=== PATIENT | female | born 1940 | race Hispanic/Latino ===

== ENCOUNTER 2017-08-18 12:47 | Inpatient (IN) | payer MEDICARE ==
[2017-08-18 12:50] VITALS: BMI 33.9
[2017-08-18] MEDS ORDERED: Sodium Chloride 0.9% 1,000 ML IV STA ×2 (13:35→14:33)
--- NOTE | 2017-08-18 13:59 | RAD ---
HISTORY: SOB COMPARISON: 10/26/2014. FINDINGS: LUNGS: The lungs are well inflated and clear. PLEURA: No significant pleural effusion identified, no pneumothorax apparent. CARDIOVASCULAR: The heart remains enlarged. There is unfolding of the aorta. OSSEOUS STRUCTURES: No significant abnormalities. VISUALIZED UPPER ABDOMEN: Normal. OTHER FINDINGS: None. IMPRESSION: No active pulmonary disease.
[2017-08-18 14:11] LABS: BASO # 0.1 K/uL (0.0-0.2); BASO % 0.4 % (0.0-2.0); EOS % 0.3 % (0.0-4.0); HEMOGLOBIN 14.8 g/dL (12.0-16.0); LYMPH # 1.2 K/uL (1.0-4.3); LYMPH % 8.3 % (20.0-40.0); MEAN CELL VOLUME 91.9 fl (81.0-99.0); MEAN CORPUSCULAR HEMOGLOBIN 30.8 pg (27.0-31.0); MEAN CORPUSCULAR HGB CONC 33.6 g/dL (33.0-37.0); MONO # 0.4 K/uL (0.0-0.8); MONO % 3.1 % (0.0-10.0); NEUT # 12.4 K/uL (1.8-7.0); NEUT % 87.9 % (50.0-75.0); NRBC % 0.1 % (0.0-0.0); PLATELET COUNT 239 K/uL (130-400); RBC 4.78 Mil/uL (3.80-5.20); RED CELL DISTRIBUTION WIDTH 13.6 % (11.5-14.5); WHITE BLOOD COUNT 14.1 K/uL (4.8-10.8)
[2017-08-18 14:26] LABS: ALB/GLOB RATIO 1.1 (1.0-2.1); ALBUMIN 4.3 g/dL (3.5-5.0); ALT/SGPT 21 U/L (9-52); AST/SGOT 20 U/L (14-36); BLOOD UREA NITROGEN 28 mg/dl (7-17); CALCIUM 9.6 mg/dL (8.4-10.2); GFR AFRICAN-AMERICAN 41; GFR NON-AFRICAN AMERICAN 34
[2017-08-18 14:37] LABS: B-TYPE NATRIURETIC PEPTIDE 369 pg/ml (0-900)
[2017-08-18 15:23] LABS: EOSINOPHIL 1 % (0-7); LYMPHOCYTE 9 % (20-50); MONOCYTE 2 % (0-10); NEUTROPHIL 87 % (42-75); PLATELET ESTIMATE NORMAL (NORMAL); REACTIVE LYMPHOCYTES 1 % (0-0); TOTAL CELLS COUNTED 100
--- NOTE | 2017-08-18 15:40 | ED PDOC ---
HPI: General Adult Time Seen by Provider: 08/18/17 13:23 Chief Complaint (Nursing): Dizziness/Lightheaded Chief Complaint (Provider): dizziness, abdominal pain, nausea History Per: Patient History/Exam Limitations: no limitations Onset/Duration Of Symptoms: Days (3), Gradual Current Symptoms Are (Timing): Still Present Severity: Moderate Additional Complaint(s): 76yo female presents c/o abdominal and chest "burning" associated with dizziness , nausea, insomnia and diarrhea. States also ran out of alprazolam 2 days ago, feels anxious with palpitations. Denies fever, urinary symptoms or syncope. States symptoms are similar to last year when she was diagnosed with colitis. Past Medical History Reviewed: Historical Data, Nursing Documentation, Vital Signs Vital Signs: Last Vital Signs Temp 98.8 F 08/18/17 12:49 Pulse 84 08/18/17 12:49 Resp 17 08/18/17 12:49 BP 166/73 H 08/18/17 12:49 Pulse Ox 94 L 08/18/17 12:49 - Medical History PMH: Anxiety, Diabetes, HTN, Hypercholesterolemia Denies: Arthritis, CHF, COPD, Hypothyroidism, Chronic Kidney Disease, Rheumatoid Arthritis - Family History Family History: States: Unknown Family Hx - Social History Current smoker - smoking cessation education provided: No Alcohol: None Drugs: Denies - Home Medications Home Medications: Ambulatory Orders Medication Instructions Recorded Aspirin [Aspirin EC] 81 mg PO DAILY 10/26/14 Glipizide [Glipizide ER] 2.5 mg PO DAILY 10/26/14 Lansoprazole 30 mg PO ONCE 10/26/14 Lorazepam 1 mg PO BID 10/26/14 Meclizine [Meclizine*] 25 mg PO TID 10/26/14 Metformin HCl 500 mg PO BID 10/26/14 Metoprolol Succinate [Toprol Xl] 50 mg PO BID 10/26/14 Ramipril 5 mg PO DAILY 10/26/14 Simvastatin 20 mg PO HS 10/26/14 Sitagliptin Phosphate [Januvia] 100 mg PO DAILY 10/26/14 Triamterene/Hydrochlorothiazid 1 tab PO DAILY 10/26/14 [Triamterene-Hctz 37.5-25 mg Tb] Ciprofloxacin HCl [Ciprofloxacin] 500 mg PO BID #14 tab 10/30/14 metroNIDAZOLE [Flagyl] 500 mg PO TID #21 tab 10/30/14 - Allergies Allergies/Adverse Reactions: Allergies Allergy/AdvReac Type Severity Reaction Status Date / Time No Known Allergies Allergy Verified 10/27/14 09:22 Review of Systems Constitutional: Positive for: Chills. Negative for: Fever ENT: Negative for: Throat Pain Cardiovascular: Positive for: Palpitations, Light Headedness. Negative for: Chest Pain Respiratory: Negative for: Shortness of Breath Gastrointestinal: Positive for: Vomiting, Abdominal Pain, Diarrhea. Negative for: Nausea, Constipation Genitourinary Female: Negative for: Dysuria Musculoskeletal: Negative for: Neck Pain, Back Pain Skin: Negative for: Rash Neurological: Positive for: Headache, Dizziness. Negative for: Weakness, Numbness Psych: Positive for: Anxiety, Withdrawal (benzo). Negative for: Depression Physical Exam - Reviewed Nursing Documentation Reviewed: Yes Vital Signs Reviewed: Yes - Physical Exam Appears: Positive for: Non-toxic (slow), No Acute Distress Head Exam: Positive for: ATRAUMATIC, NORMAL INSPECTION, NORMOCEPHALIC Skin: Positive for: Normal Color, Warm, DRY Eye Exam: Positive for: EOMI, Normal appearance, PERRL ENT: Positive for: Normal ENT Inspection Neck: Positive for: Normal, Painless ROM Cardiovascular/Chest: Positive for: Regular Rate, Rhythm Respiratory: Positive for: CNT, Normal Breath Sounds Gastrointestinal/Abdominal: Positive for: Soft, Tenderness (mild L>R). Negative for: Guarding Back: Positive for: Normal Inspection Extremity: Positive for: Normal ROM. Negative for: Deformity Neurologic/Psych: Positive for: Alert, Oriented. Negative for: Motor/Sensory Deficits - Laboratory Results Result Diagrams: 08/18/17 14:05 08/18/17 14:05 - ECG O2 Sat by Pulse Oximetry: 94 Medical Decision Making Medical Decision Making: workup for abd pain in setting of dizziness and anxiety initiated Disposition - Disposition
--- NOTE | 2017-08-18 16:19 | CT ---
PROCEDURE: CT Abdomen and Pelvis without intravenous contrast HISTORY: Abdominal pain and dizziness COMPARISON: 10/26/2014. TECHNIQUE: CT scan of the abdomen and pelvis was performed without administration of intravenous contrast. Oral contrast was not administered. Coronal and sagittal reformatted images were obtained. Radiation dose: Total exam DLP = 1577.33 mGy-cm. This CT exam was performed using one or more of the following dose reduction techniques: Automated exposure control, adjustment of the mA and/or kV according to patient size, and/or use of iterative reconstruction technique. FINDINGS: LOWER THORAX: There is subsegmental atelectasis in the lower lobes. LIVER: Normal in size. No gross lesion or ductal dilatation. GALLBLADDER AND BILE DUCTS: The gallbladder is distended and there are small gallstones. No wall thickening or pericholecystic fluid. PANCREAS: The pancreas is normal in size. No gross lesion or ductal dilatation. SPLEEN: Normal in size. ADRENALS: No discrete nodule. KIDNEYS AND URETERS: The kidneys are normal in size without nephrolithiasis or hydronephrosis. There are simple cortical cysts in the upper and lower pole of the right kidney. There is mild nonspecific perinephric fat stranding. VASCULATURE: No aortic aneurysm. BOWEL: The small bowel loops are normal in caliber. There is extensive sigmoid diverticulosis. There is severe circumferential mural thickening in the sigmoid colon with pericolonic inflammatory changes predominantly in the proximal sigmoid colon. No evidence for micro perforation or abscess. No bowel obstruction. APPENDIX: Normal appendix. PERITONEUM: No free fluid. No free air. LYMPH NODES: No enlarged lymph nodes. BLADDER: Grossly normal in appearance. REPRODUCTIVE: The uterus is normal in size. BONES: No acute fracture. Advanced multilevel degenerative disc disease. OTHER FINDINGS: There is a small sliding hiatal hernia. IMPRESSION: 1. Findings are consistent with acute sigmoid diverticulitis worse in the proximal sigmoid colon. No microperforation or abscess. 2. Cholelithiasis.
[2017-08-18] MEDS ORDERED: Piperacillin/Tazobact 3.375 GM in Sodium Chloride 0.9% 100 ML IVPB STA (17:42)
[2017-08-18] MEDS ORDERED: Piperacillin/Tazobact 3.375 gm Inj IVPB ONE (18:48)
--- NOTE | 2017-08-18 19:25 | CP.PCM.HP ---
<Vivian Kinney - Last Filed: 08/19/17 02:31> History of Present Illness - History of Present Illness History of Present Illness: 76 yr old F presented to ED with complaint of severe burning abdominal pain and nausea x 3 days. Associated symptoms are diarrhea and dizziness. PMHx includes HTN, NIDDM, CKD stage 3B, hypercholesterolemia, Velazquez's Esophagus, Hiatal hernia, diabetic retinopathy, anxiety and vertigo. Patient reports she ran out of Xanax and feels nervous. Denies vomiting, chest pain, sweating, hematochezia , fevers, chills or dysuria. Reports she had similar symptoms a few years ago and was hospitalized for treatment. Emergency contact: Forest Anders (son): [phone] PMD: Dr. Rice Specialists: her neurologist retired -could not recall name PMHx: HTN, NIDDM, CKD stage 3B, hypercholesterolemia, Velazquez's Esophagus, Hiatal hernia, diabetic retinopathy, anxiety and vertigo Hospital admissions: 2014 for sigmoid diverticulitis SurgHx: b/l cataract surgery FMHx: mother at age 79-was healthy; father at 70 from [place], sister at 67 yrs old from breast cancer SocHx: denies tobacco/Etoh or drugs, lives alone in a senior citizen community, walks without use of any assistive devices Medications: Pioglitazone 30mg PO QD, Simvastatin 20mg PO QHS, Xanax 0.5 mg PO Q12, Aspirin 81mg PO QD, Omeprazole 20mg PO QD, Meclizine 12.5 mg PO Q8, Metoprolol Tartrate 50mg PO Q12, Multivitamin 1 tab QD Allergies: NKDA ED course: BP 166/73 bpm, HR 84, Resp 17, O2 sat 94% on room air, temp 98.8F -EKG: NSR at rate of 80 bpm -CXR: no active pulmonary disease -CBC: WBC 14.1, H/H 14.8/44, plts 239, Neut % 87.9 -CMP: Na 142, K+ 4.3, Cl 106, HCO3 23, Anion gap 17, BUN 28, Cr 1.5, eGFR 34, random glucose 148 -AST 20, ALT 21, alk phos 136, total bili 0.9, total protein 8.1 -troponin: < 0.0120 -pro-BNP: 369 -Abd/Pelvis CT: findings consistent with acute sigmoid diverticulitis worse in the proximal sigmoid colon, no microperforation or abscess, cholelithiasis -ED treatment: 2L NS bolus, Toradol 15mg IV once, Zosyn 3.375gm IV once, Xanax 1mg PO once Present on Admission - Present on Admission Any Indicators Present on Admission: No History of DVT/PE: No History of Uncontrolled Diabetes: No Urinary Catheter: No Decubitus Ulcer Present: No History Surgical Site Infection Following: None Review of Systems - Constitutional Constitutional: absent: Chills, Weakness - EENT Eyes: absent: Change in Vision Ears: Dizziness Nose/Mouth/Throat: absent: Nasal Congestion, Nasal Discharge - Breasts Breasts: absent: Skin Changes - Cardiovascular Cardiovascular: absent: Chest Pain, Dyspnea - Respiratory Respiratory: absent: Cough, Hemoptysis - Gastrointestinal Gastrointestinal: Abdominal Pain, Diarrhea, Heartburn, Nausea. absent: Vomiting - Genitourinary Genitourinary: absent: Difficulty Urinating, Dysuria - Musculoskeletal Musculoskeletal: absent: Arthralgias - Neurological Neurological: absent: Confusion, Focal Weakness, Headaches - Psychiatric Psychiatric: Anxiety - Endocrine Endocrine: absent: Polydipsia, Polyphagia, Polyuria - Hematologic/Lymphatic Hematologic: absent: Easy Bleeding, Easy Bruising Past Patient History - Past Social History Alcohol: None Drugs: Denies - CARDIAC Hx Congestive Heart Failure: No Hx Hypercholesterolemia: Yes Hx Hypertension: Yes - PULMONARY Hx Chronic Obstructive Pulmonary Disease (COPD): No - NEUROLOGICAL HX Cerebrovascular Accident: No - HEENT Hx HEENT Problems: No - RENAL Hx Chronic Kidney Disease: No - ENDOCRINE/METABOLIC Hx Hypothyroidism: No - HEMATOLOGICAL/ONCOLOGICAL Hx Blood Disorders: No - INTEGUMENTARY Hx Dermatological Problems: No - MUSCULOSKELETAL/RHEUMATOLOGICAL Hx Arthritis: No Hx Rheumatoid Arthritis: No - GASTROINTESTINAL Hx Gastrointestinal Disorders: Yes Hx Gastroesophageal Reflux: Yes - GENITOURINARY/GYNECOLOGICAL Hx Genitourinary Disorders: Yes - PSYCHIATRIC Hx Anxiety: Yes - SURGICAL HISTORY Other/Comment: eye surgery - ANESTHESIA Hx Anesthesia: No Meds Allergies/Adverse Reactions: Allergies Allergy/AdvReac Type Severity Reaction Status Date / Time No Known Allergies Allergy Verified 10/27/14 09:22 Physical Exam - Constitutional Appears: No Acute Distress - Head Exam Head Exam: ATRAUMATIC, NORMOCEPHALIC - Eye Exam Eye Exam: EOMI, PERRL - ENT Exam ENT Exam: Mucous Membranes Moist - Neck Exam Neck exam: Positive for: Full Rom. Negative for: Lymphadenopathy - Respiratory Exam Respiratory Exam: Clear to Auscultation Bilateral, NORMAL BREATHING PATTERN. absent: Rhonchi, Wheezes - Cardiovascular Exam Cardiovascular Exam: REGULAR RHYTHM, +S1, +S2 - GI/Abdominal Exam GI & Abdominal Exam: Normal Bowel Sounds, Soft (obese), Tenderness (mild tenderness to palpation in LLQ and periumbilical area) - Extremities Exam Extremities exam: Positive for: full ROM. Negative for: pedal edema - Back Exam Back exam: absent: CVA tenderness (L), CVA tenderness (R) - Neurological Exam Neurological exam: Alert, CN II-XII Intact (grossly), Oriented x3 - Psychiatric Exam Psychiatric exam: Anxious (mild), Normal Affect, Normal Mood - Skin Skin Exam: Dry, Intact, Normal Color, Warm Results - Vital Signs Recent Vital Signs: Last Vital Signs Temp 98.8 F 08/18/17 12:49 Pulse 84 08/18/17 12:49 Resp 17 08/18/17 12:49 BP 166/73 H 08/18/17 12:49 Pulse Ox 94 L 08/18/17 15:42 - Labs Result Diagrams: 08/18/17 14:05 08/18/17 14:05 Labs: Laboratory Results - last 24 hr 08/18/17 08/18/17 08/18/17 13:07 14:05 14:05 WBC 14.1 H RBC 4.78 Hgb 14.8 Hct 44.0 MCV 91.9 MCH 30.8 MCHC 33.6 RDW 13.6 Plt Count 239 MPV 9.0 Neut % (Auto) 87.9 H Lymph % (Auto) 8.3 L [place] % (Auto) 3.1 Eos % (Auto) 0.3 Baso % (Auto) 0.4 Neut # (Auto) 12.4 H Lymph # (Auto) 1.2 [place] # (Auto) 0.4 Eos # (Auto) 0.0 Baso # (Auto) 0.1 Neutrophils % (Manual) 87 H Lymphocytes % (Manual) 9 L Reactive Lymphs % 1 H Monocytes % (Manual) 2 Eosinophils % (Manual) 1 Platelet Estimate Normal RBC Morphology Normal Sodium 142 Potassium 4.3 Chloride 106 Carbon Dioxide 23 Anion Gap 17 BUN 28 H Creatinine 1.5 H Est GFR ( Amer) 41 Est GFR (Non-Af Amer) 34 POC Glucose (mg/dL) 132 H Random Glucose 148 H Calcium 9.6 Total Bilirubin 0.9 AST 20 ALT 21 Alkaline Phosphatase 136 H Troponin I < 0.0120 NT-Pro-B Natriuret Pep 369 Total Protein 8.1 Albumin 4.3 Globulin 3.8 Albumin/Globulin Ratio 1.1 Assessment & Plan - Assessment and Plan (Free Text) Assessment: 76 yr old F admitted for acute diverticulitis with PMHx of HTN, NIDDM, , hypercholesterolemia, Velazquez's Esophagus, Hiatal hernia, diabetic retinopathy, anxiety and vertigo. 1. Acute Diverticulitis -persistent abdominal pain, nausea and diarrhea -leukocytosis 14.1 with left shift -Abd/Pelvis CT: findings consistent with acute sigmoid diverticulitis worse in the proximal sigmoid colon, no microperforation or abscess, cholelithiasis -admit to med/surg -GI consult appreciated: will follow recommendations -Zofran PRN, pain management, IV fluids, Zosyn 3.375mg IV Q6 -f/u CMP 2. HTN -chronic, controlled -continue home medication: Metoprolol Tartrate 50mg PO Q12, Aspirin 81mg PO QD 3. NIDDM Type 2 -chronic, controlled -continue home medications: Pioglitazone 30mg PO QD, Simvastatin 20mg PO QHS -f/u HbA1c, lipid panel 4. CKD stage 3B -chronic, stable -BUN/Cr and GFR close to baseline (28/1.5) -continue IV fluids -consider outpatient referral to nephrology 5. Anxiety -chronic, controlled -continue home medications: Xanax 0.5 mg PO Q12 6. Vertigo -chronic, controlled -continue home medications: Meclizine 12.5 mg PO Q8 7. DVT prophylaxis -Lovenox 30 SC daily - Date & Time Date: 08/19/17 Time: 19:45 <Davi Nice - Last Filed: 08/22/17 06:46> Results - Vital Signs Recent Vital Signs: Last Vital Signs Temp 97.6 F 08/20/17 09:00 Pulse 66 08/20/17 09:07 Resp 20 08/20/17 09:00 BP 167/78 H 08/20/17 09:07 Pulse Ox 100 08/20/17 09:00 - Labs Result Diagrams: 08/19/17 05:45 08/19/17 05:45 Attending/Attestation - Attestation I have fully participated in the care of the patient.: Yes I have reviewed all pertinent clinical information: Yes
[2017-08-18] MEDS ORDERED: Sodium Chloride 0.9% 1,000 ML IV SCH (21:45)
[2017-08-18] MEDS: Sodium Chloride 0.9% 1,000 ML IV SCH (22:30)
[2017-08-19] MEDS: Piperacillin/Tazobact 3.375 GM in Sodium Chloride 0.9% 100 ML IVPB SCH ×4 (04:02→21:31)
[2017-08-19 06:53] LABS: BASO % 0.5 % (0.0-2.0); EOS # 0.2 K/uL (0.0-0.7); EOS % 1.9 % (0.0-4.0); HEMOGLOBIN 12.8 g/dL (12.0-16.0); LYMPH # 1.6 K/uL (1.0-4.3); LYMPH % 18.9 % (20.0-40.0); MEAN CELL VOLUME 92.4 fl (81.0-99.0); MEAN CORPUSCULAR HEMOGLOBIN 30.3 pg (27.0-31.0); MEAN CORPUSCULAR HGB CONC 32.8 g/dL (33.0-37.0); MEAN PLATELET VOLUME 9.1 fl (7.2-11.7); MONO # 0.9 K/uL (0.0-0.8); MONO % 10.5 % (0.0-10.0); NEUT # 5.7 K/uL (1.8-7.0); NEUT % 68.2 % (50.0-75.0); NRBC % 0.1 % (0.0-0.0); RBC 4.22 Mil/uL (3.80-5.20); RED CELL DISTRIBUTION WIDTH 13.5 % (11.5-14.5); WHITE BLOOD COUNT 8.4 K/uL (4.8-10.8)
[2017-08-19 07:02] LABS: ALB/GLOB RATIO 1.1 (1.0-2.1); ALBUMIN 3.6 g/dL (3.5-5.0); CALCIUM 8.8 mg/dL (8.4-10.2)
[2017-08-19] MEDS: Sodium Chloride 0.9% 1,000 ML IV SCH (09:00)
[2017-08-19] MEDS ORDERED: Pantoprazole 40 mg EC Tab PO SCH (09:00)
[2017-08-19] MEDS ORDERED: [UNRECOGNIZED DRUG - OTHER] PO SCH (09:00)
[2017-08-19] MEDS: Enoxaparin 30 mg Syringe SC SCH (09:01)
[2017-08-19] MEDS: Multivitamin With Minerals Tab PO SCH (09:02)
--- NOTE | 2017-08-19 09:03 | CP.PCM.PN ---
Subjective - Date & Time of Evaluation Date of Evaluation: 08/19/17 Time of Evaluation: 07:45 - Subjective Subjective: Patient seen and examined this morning with Dr. Chahal. NPO, no acute distress , Patient is c/o abdominal pain, denies nausea, vomiting, diarrhea or any dizziness. Objective - Vital Signs/Intake and Output Vital Signs (last 24 hours): Temp Pulse Resp BP Pulse Ox 97.8 F 69 20 163/76 H 96 08/19/17 08:11 08/19/17 09:01 08/19/17 08:11 08/19/17 09:01 08/19/17 08:11 - Medications Medications: Current Medications Alprazolam (Xanax) 0.5 mg PO Q12 PRN PRN Reason: Anxiety Aspirin (Ecotrin) 81 mg PO DAILY [facility] Last Admin: 08/19/17 09:00 Dose: 81 mg Atorvastatin Calcium (Lipitor) 10 mg PO HS [facility] Last Admin: 08/18/17 22:30 Dose: 10 mg Enoxaparin Sodium (Lovenox) 30 mg SC DAILY [facility] PRN Reason: Protocol Last Admin: 08/19/17 09:01 Dose: 30 mg Sodium Chloride (Sodium Chloride 0.9%) 1,000 mls @ 130 mls/hr IV .Q7H42M [facility] Stop: 08/19/17 13:26 Last Admin: 08/18/17 22:30 Dose: 130 mls/hr Piperacillin Sod/Tazobactam (Sod 3.375 gm/ Sodium Chloride) 100 mls @ 100 mls/ hr IVPB Q6 JU PRN Reason: Protocol Last Admin: 08/19/17 09:02 Dose: 100 mls/hr Meclizine HCl (Antivert) 12.5 mg PO Q8 PRN PRN Reason: Dizziness Metoprolol Tartrate (Lopressor) 50 mg PO Q12 [facility] Last Admin: 08/19/17 09:01 Dose: 50 mg Morphine Sulfate (Morphine) 2 mg IVP Q6 PRN PRN Reason: Pain, severe (8-10) Last Admin: 08/19/17 05:45 Dose: 2 mg Multivitamins/Minerals (Therapeutic-M Tab) 1 tab PO DAILY [facility] Last Admin: 08/19/17 09:02 Dose: 1 tab Ondansetron HCl (Zofran Odt) 4 mg PO Q8H PRN PRN Reason: Nausea/Vomiting Pantoprazole Sodium (Protonix Inj) 40 mg IVP DAILY [facility] Last Admin: 08/19/17 09:02 Dose: 40 mg Pioglitazone HCl (Actos) 30 mg PO DAILY [facility] Last Admin: 08/19/17 09:03 Dose: Not Given - Labs Labs: 08/19/17 05:45 08/19/17 05:45 - Constitutional Appears: No Acute Distress - Head Exam Head Exam: NORMAL INSPECTION - Eye Exam Eye Exam: EOMI, Normal appearance, PERRL - ENT Exam ENT Exam: Mucous Membranes Moist - Neck Exam Neck Exam: Normal Inspection - Respiratory Exam Respiratory Exam: Clear to Ausculation Bilateral, NORMAL BREATHING PATTERN. absent: Rhonchi, Wheezes - Cardiovascular Exam Cardiovascular Exam: REGULAR RHYTHM - GI/Abdominal Exam GI & Abdominal Exam: Soft, Tenderness (mild tenderness to palpation in LLQ and periumbilical area), Normal Bowel Sounds. absent: Rebound - Extremities Exam Extremities Exam: Full ROM, Normal Inspection - Back Exam Back Exam: NORMAL INSPECTION. absent: CVA tenderness (L), CVA tenderness (R) - Neurological Exam Neurological Exam: Alert, Awake, Oriented x3 - Psychiatric Exam Psychiatric exam: Normal Affect - Skin Skin Exam: Dry, Intact, Normal Color, Warm Assessment and Plan - Assessment and Plan (Free Text) Assessment: 76 yr old F admitted for acute diverticulitis with PMHx of HTN, NIDDM, , hypercholesterolemia, Velazquez's Esophagus, Hiatal hernia, diabetic retinopathy, anxiety and vertigo. 1. Acute Diverticulitis -Persistent abdominal pain, nausea and diarrhea -Afebrile -leukocytosis 14.1 with left shift -Abd/Pelvis CT: findings consistent with acute sigmoid diverticulitis worse in the proximal sigmoid colon, no microperforation or abscess, cholelithiasis -GI consult, Dr. Gonzalez: will follow recommendations -Zofran PRN, pain management, IV fluids, Zosyn 3.375mg IV Q6 -CMP reviewed this morning -NPO, IVF, will consider starting liquid diet -Pain management -C/w Zosyn -C/w PPI 2. HTN -chronic, controlled -continue home medication: Metoprolol Tartrate 50mg PO Q12, Aspirin 81mg PO QD 3. NIDDM Type 2 -chronic, controlled -continue home medications: Pioglitazone 30mg PO QD, Simvastatin 20mg PO QHS -f/u HbA1c, lipid panel 4. CKD stage 3B -chronic, stable -BUN/Cr 25/1.5 -continue IV fluids -consider outpatient referral to nephrology 5. Anxiety -chronic, controlled -continue home medications: Xanax 0.5 mg PO Q12 6. Vertigo -chronic, controlled -continue home medications: Meclizine 12.5 mg PO Q8 7. DVT prophylaxis -Lovenox 40 SC daily
[2017-08-20] MEDS: Piperacillin/Tazobact 3.375 GM in Sodium Chloride 0.9% 100 ML IVPB SCH ×2 (03:37→09:09)
[2017-08-20] MEDS: Multivitamin With Minerals Tab PO SCH (08:57)
[2017-08-20] MEDS: Enoxaparin 30 mg Syringe SC SCH (08:58)
[2017-08-20 09:16] VITALS: BP 167/78; PULSE 66
--- NOTE | 2017-08-20 11:52 | CP.PCM.DIS ---
Provider - Provider Date of Admission: 08/18/17 17:42 Attending physician: Kale Chahal MD Primary care physician: Dr. Chahal Consults: Dr. Workman Time Spent in preparation of Discharge (in minutes): 40 Diagnosis - Discharge Diagnosis (1) Sigmoid diverticulitis Status: Acute Priority: Medium Hospital Course - Lab Results Lab Results: Most Recent Lab Values WBC 8.4 K/uL (4.8-10.8) 08/19/17 05:45 RBC 4.22 Mil/uL (3.80-5.20) 08/19/17 05:45 Hgb 12.8 g/dL (12.0-16.0) D 08/19/17 05:45 Hct 39.0 % (34.0-47.0) 08/19/17 05:45 MCV 92.4 fl (81.0-99.0) 08/19/17 05:45 MCH 30.3 pg (27.0-31.0) 08/19/17 05:45 MCHC 32.8 g/dL (33.0-37.0) L 08/19/17 05:45 RDW 13.5 % (11.5-14.5) 08/19/17 05:45 Plt Count 197 K/uL (130-400) 08/19/17 05:45 MPV 9.1 fl (7.2-11.7) 08/19/17 05:45 Neut % (Auto) 68.2 % (50.0-75.0) 08/19/17 05:45 Lymph % (Auto) 18.9 % (20.0-40.0) L 08/19/17 05:45 [place] % (Auto) 10.5 % (0.0-10.0) H 08/19/17 05:45 Eos % (Auto) 1.9 % (0.0-4.0) 08/19/17 05:45 Baso % (Auto) 0.5 % (0.0-2.0) 08/19/17 05:45 Neut # (Auto) 5.7 K/uL (1.8-7.0) 08/19/17 05:45 Lymph # (Auto) 1.6 K/uL (1.0-4.3) 08/19/17 05:45 [place] # (Auto) 0.9 K/uL (0.0-0.8) H 08/19/17 05:45 Eos # (Auto) 0.2 K/uL (0.0-0.7) 08/19/17 05:45 Baso # (Auto) 0.0 K/uL (0.0-0.2) 08/19/17 05:45 Neutrophils % (Manual) 87 % (42-75) H 08/18/17 14:05 Lymphocytes % (Manual) 9 % (20-50) L 08/18/17 14:05 Reactive Lymphs % 1 % (0-0) H 08/18/17 14:05 Monocytes % (Manual) 2 % (0-10) 08/18/17 14:05 Eosinophils % (Manual) 1 % (0-7) 08/18/17 14:05 Platelet Estimate Normal (NORMAL) 08/18/17 14:05 RBC Morphology Normal (NORMAL) 08/18/17 14:05 Sodium 145 mmol/l (132-148) 08/19/17 05:45 Potassium 3.7 MMOL/L (3.6-5.0) 08/19/17 05:45 Chloride 109 mmol/L (98-107) H 08/19/17 05:45 Carbon Dioxide 25 mmol/L (22-30) 08/19/17 05:45 Anion Gap 15 (10-20) 08/19/17 05:45 BUN 25 mg/dl (7-17) H 08/19/17 05:45 Creatinine 1.5 mg/dl (0.7-1.2) H 08/19/17 05:45 Est GFR ( Amer) 41 08/19/17 05:45 Est GFR (Non-Af Amer) 34 08/19/17 05:45 POC Glucose (mg/dL) 132 mg/dL (65-110) H 08/18/17 13:07 Random Glucose 97 mg/dL (65-105) 08/19/17 05:45 Hemoglobin A1c 5.7 % (4.2-6.5) 08/19/17 05:45 Calcium 8.8 mg/dL (8.4-10.2) 08/19/17 05:45 Total Bilirubin 0.8 mg/dl (0.2-1.3) 08/19/17 05:45 AST 15 U/L (14-36) 08/19/17 05:45 ALT 17 U/L (9-52) 08/19/17 05:45 Alkaline Phosphatase 109 U/L (38-126) 08/19/17 05:45 Troponin I < 0.0120 ng/mL (0.00-0.120) 08/18/17 14:05 NT-Pro-B Natriuret Pep 369 pg/ml (0-900) 08/18/17 14:05 Total Protein 6.9 G/DL (6.3-8.2) 08/19/17 05:45 Albumin 3.6 g/dL (3.5-5.0) 08/19/17 05:45 Globulin 3.3 gm/dL (2.2-3.9) 08/19/17 05:45 Albumin/Globulin Ratio 1.1 (1.0-2.1) 08/19/17 05:45 Triglycerides 179 mg/DL (0-149) H 08/19/17 05:45 Cholesterol 149 mg/dL (0-199) 08/19/17 05:45 LDL Cholesterol Direct 70 mg/dL (0-129) 08/19/17 05:45 HDL Cholesterol 36 MG/DL (30-70) 08/19/17 05:45 - Hospital Course Hospital Course: 76 yr old F admitted for acute diverticulitis with PMHx of HTN, NIDDM, , hypercholesterolemia, Velazquez's Esophagus, Hiatal hernia, diabetic retinopathy, anxiety and vertigo admitted for evaluation and treatment of acute diverticulitis. Abd/Pelvis CT: findings consistent with acute sigmoid diverticulitis worse in the proximal sigmoid colon, no microperforation or abscess, cholelithiasis. Patient was started on Zosyn and GI, Dr. Workman was consulted. Patient kept NPO and advanced her diet as tolerated. Discharge day: pain has improved, tolerating PO diet, urinating freely, patient agrees with discharge plan and follow up with PMD/GI. Discharge Rx: Cipro, and flagyl Discharge Exam - Head Exam Head Exam: NORMAL INSPECTION - Eye Exam Eye Exam: Normal appearance - ENT Exam ENT Exam: Mucous Membranes Moist - Respiratory Exam Respiratory Exam: Clear to PA & Lateral, NORMAL BREATHING PATTERN - Cardiovascular Exam Cardiovascular Exam: REGULAR RHYTHM - GI/Abdominal Exam GI & Abdominal Exam: Normal Bowel Sounds, Soft. absent: Guarding, Rigid, Tenderness - Back Exam Back exam: absent: CVA tenderness (L), CVA tenderness (R) - Neurological Exam Neurological exam: Alert, CN II-XII Intact, Oriented x3, Reflexes Normal - Psychiatric Exam Psychiatric exam: Normal Affect - Skin Skin Exam: Dry, Intact, Normal Color, Warm Discharge Plan - Discharge Medications Prescriptions: Ciprofloxacin/Ciprofloxa HCl [Ciprofloxacin ER 500 mg Tablet] 500 mg PO BID 5 Days tbmp.24hr Meclizine [Antivert] 12.5 mg PO Q8 PRN #60 tab PRN Reason: Dizziness Metronidazole [Flagyl] 500 mg PO Q8H 5 Days tablet - Follow Up Plan Condition: GOOD Disposition: HOME/ ROUTINE Instructions: Diverticulitis, Diverticulitis Diet (DC) Additional Instructions: Follow up with with in a week Follow up with Dr. Workman after discharge C/w Home Antibiotics , Rx sent to Pharmacy Referrals: Kale Chahal MD [Staff Provider] - Andrzej Workman MD, PhD [Staff Provider] -
[2017-08-20 13:04] VITALS: RESP 20; TEMP 97.6; O2SAT 100
--- NOTE | 2017-08-22 07:44 | CON ---
DATE: 08/19/2017 REFERRING PHYSICIAN: Dr. Chahal. REASON FOR CONSULTATION: Abdominal pain. HISTORY OF PRESENT ILLNESS: This is a pleasant 76-year-old female with history of abdominal pain and discomfort, , history of diabetes, hypertension, CKD, hypercholesterolemia, hiatal hernia, adenopathy, anxiety, vertigo who comes in with some nausea and vomiting epigastric discomfort fever or chills. At this point, lying in bed comfortable, in no apparent distress. PAST MEDICAL HISTORY: As above. PAST SURGICAL HISTORY: As above. REVIEW OF SYSTEMS: All other systems have been reviewed and negative apart from the HPI. PHYSICAL EXAMINATION: VITAL SIGNS: Here in the hospital, grossly unremarkable. GENERAL: A pleasant elderly appearing female, lying in bed comfortably and in no apparent distress. HEENT: Head is normocephalic and atraumatic. Eyes; pupils are equally reactive to light bilaterally. No conjunctival pallor or icterus. NECK: Supple. Normal range of motion. No lymphadenopathy. LUNGS: Coarse breath sounds bilaterally. HEART: S1 and S2, regular rate and rhythm. No murmurs appreciated. ABDOMEN: Soft and nontender. Bowel sounds are present. Some discomfort in the left lower quadrant. No rebound. No guarding. RECTAL: Deferred. EXTREMITIES: Pulses felt bilaterally. SKIN: Warm, dry and intact. NEUROLOGIC: A and O x3. LABORATORY DATA: Labs and radiology have been reviewed. CAT scan shows sigmoid diverticulitis. White blood cell count was 14.1 down to 8.4; hemoglobin is stable. LFTs are grossly unremarkable at this point. Creatinine is 1.5. ASSESSMENT AND PLAN: This is a 76-year-old female with diverticulitis. Antibiotics for now. We will need , n.p.o. until pain free. Thank you for the consult. Andrzej Gonzalez MD/ PhD cc: Dr. Chahal
== END 2017-08-20 13:16 | disposition home health service (06) | DRG 392 ==
LOC: H.ER 12:47 → H.ERHOLD 17:42 → H.MEDSURG1 19:40
PROVIDERS: ADMIT Family Medicine; ATTEND Family Medicine
DX: K57.32 Diverticulitis of large intestine without perforation or abscess without bleeding (principal); N18.3 Chronic kidney disease, stage 3 (moderate); Z79.82 Long term (current) use of aspirin; Z79.84 Long term (current) use of oral hypoglycemic drugs; Z79.899 Other long term (current) drug therapy; Z80.3 Family history of malignant neoplasm of breast; Z98.42 Cataract extraction status, left eye; Z98.41 Cataract extraction status, right eye; K44.9 Diaphragmatic hernia without obstruction or gangrene; K52.9 Noninfective gastroenteritis and colitis, unspecified; E11.22 Type 2 diabetes mellitus with diabetic chronic kidney disease; R59.9 Enlarged lymph nodes, unspecified; R00.2 Palpitations; D72.829 Elevated white blood cell count, unspecified; E11.319 Type 2 diabetes mellitus with unspecified diabetic retinopathy without macular edema; E78.00 Pure hypercholesterolemia, unspecified; F41.9 Anxiety disorder, unspecified; I12.9 Hypertensive chronic kidney disease with stage 1 through stage 4 chronic kidney disease, or unspecified chronic kidney disease; K21.9 Gastro-esophageal reflux disease without esophagitis; K22.70 Barrett's esophagus without dysplasia